=== PATIENT | female | born 1970 | race Caucasian/White ===

== ENCOUNTER 2021-09-05 01:20 | Emergency (ER) | payer OTHER | END 2021-09-05 02:25 | disposition home or self-care (01) | LOC: ER1 01:20 | DX: J44.9 Chronic obstructive pulmonary disease, unspecified (principal); I10 Essential (primary) hypertension; F17.210 Nicotine dependence, cigarettes, uncomplicated | CPT/HCPCS: 94640; 94664; 96372; 99284; J1100 ==